=== PATIENT | female | born 1985 | race Caucasian/White ===

== ENCOUNTER 2023-04-20 18:23 | Emergency (ER) | payer OTHER ==
[~2023-04-20] VITALS: Ht 162.6 cm; Wt 65.8 kg
[2023-04-20 18:42] VITALS: BP_SYST 134; PULSE 108; RESP 18; TEMP 98.3; O2SAT 100
[2023-04-20 20:10] LABS: BILIRUBIN,URINE NEGATIVE (NEGATIVE); BLOOD, URINE 3+ (NEGATIVE); COLOR,URINE YELLOW (YELLOW); GLUCOSE,URINE NEGATIVE (NEGATIVE); KETONES,URINE NEGATIVE (NEGATIVE); LEUKOCYTE ESTERASE ,URINE NEGATIVE (NEGATIVE); NITRITE, URINE NEGATIVE (NEGATIVE); PROTEIN URINE NEGATIVE (NEGATIVE); UROBILINOGEN,URINE 0.2 (0.2-1.0)
[2023-04-20 20:13] LABS: CLARITY/URINE CLOUDY (CLEAR)
[2023-04-20 20:23] LABS: BACTERIA,URINE FEW /HPF (None Seen); WBC,URINE 0-3 /HPF (0-3)
[2023-04-20 20:29] LABS: BASOPHILS # (AUTO) 0.1 K/uL (0.0-0.2); BASOPHILS % (AUTO) 0.4 % (0.0-2.0); EOSINOPHILS # (AUTO) 0.1 K/uL (0.0-0.4); EOSINOPHILS % (AUTO) 0.9 % (0.0-4.0); HEMATOCRIT 44.6 % (36-48); HEMOGLOBIN 14.4 g/dL (12.0-16.0); LYMPHOCYTES # (AUTO) 2.5 K/uL (1.0-5.5); LYMPHOCYTES % (AUTO) 17.8 % (20.5-51.5); MEAN CORPUSCULAR HEMOGLOBIN 26 pg (27-31); MEAN CORPUSCULAR HGB CONC 32 % (32-36); MEAN CORPUSCULAR VOLUME 81 fL (79.0-98.0); MONOCYTES # (AUTO) 0.9 K/uL (0.0-1.0); NEUTROPHILS # (AUTO) 10.6 K/uL (1.8-7.7); NEUTROPHILS % (AUTO) 74.9 % (40.0-70.0); PLATELET COUNT (AUTO) 455 K/uL (130-430); RED BLOOD CELL COUNT(AUTO) 5.52 MIL/uL (4.2-6.2); RED CELL DISTRIBUTION WIDTH 14.1 % (9.0-15.0); WHITE BLOOD COUNT (AUTO) 14.2 K/uL (4.8-10.8)
[2023-04-20 20:37] LABS: ALBUMIN 4.4 g/dL (3.4-4.8); CALCIUM 9.6 mg/dL (8.4-11.0); CREATININE 0.84 mg/dL (0.55-1.30); POTASSIUM 3.3 mmol/L (3.5-5.1); TOTAL BILIRUBIN 0.8 mg/dL (0.0-1.0); TOTAL PROTEIN, SERUM 9.3 g/dL (6.4-8.3)
[2023-04-20] MEDS ORDERED: PIPERACILLIN/TAZO 3.375 GM in NS 50 ML IV ONE (23:00)
[2023-04-20] MEDS ORDERED: NACL 0.9% 1,000 ML IV ONE (23:00)
[2023-04-20] MEDS ORDERED: MORPHINE 4 MG INJ. 4 MG/ML VIAL IVP ONE (23:00)
[2023-04-20] MEDS ORDERED: PIPERACILLIN/TAZOBACTAM 3.375 GM/VIAL (ZOSYN) IV ONE (23:16)
[2023-04-21] MEDS ORDERED: LEVO-62 PO ×3 (00:57→01:10)
[2023-04-21] MEDS ORDERED: TRAM50TA2 PO ×3 (00:57→01:10)
[2023-04-21 01:24] VITALS: BP_SYST 128; PULSE 88; RESP 18; TEMP 98.3; O2SAT 99
[2023-04-22] MEDS ORDERED: LISI10TA29 PO (07:13)
[2023-04-22] MEDS ORDERED: LISI1TAB53 PO (07:46)
[2023-04-24] MEDS ORDERED: ONDA-8 TL (14:56)
[2023-04-24] MEDS ORDERED: AMOX-423 PO (14:56)
[2023-04-25] MEDS ORDERED: HYDR-3917 PO (10:33)
== END 2023-04-21 01:24 | disposition home or self-care (01) ==
LOC: SED 18:23
DX: K80.20 Calculus of gallbladder without cholecystitis without obstruction (principal); N39.0 Urinary tract infection, site not specified; R10.9 Unspecified abdominal pain; Z79.899 Other long term (current) drug therapy
CPT/HCPCS: 99285; 74176; 96365; 76700; 96375; 80053; 81001; 83690; 85025; 87040; 36415; 76376; 83605; 81000; 81015; J2543; J2270